=== PATIENT | male | born 1955 | race Caucasian/White ===

== ENCOUNTER 2021-03-20 08:14 | Outpatient (CLI) | payer OTHER | END 2021-03-20 08:15 | disposition home or self-care (01) | LOC: CSHCT 08:14 | PROVIDERS: ATTEND Urology | DX: R10.9 Unspecified abdominal pain (principal); K80.80 Other cholelithiasis without obstruction; N28.82 Megaloureter | CPT/HCPCS: 74178; 82565 ==

== ENCOUNTER 2024-01-05 07:14 | Outpatient (CLI) | payer MEDICARE, OTHER ==
[2024-01-05] MEDS ORDERED: Iopamidol 300 61% 100 ML VIAL FS ONE (12:30)
== END 2024-01-05 07:15 | disposition home or self-care (01) ==
LOC: CSHCT 07:14
PROVIDERS: ATTEND Family Medicine
DX: R10.30 Lower abdominal pain, unspecified (principal); R17 Unspecified jaundice; K80.20 Calculus of gallbladder without cholecystitis without obstruction; K57.30 Diverticulosis of large intestine without perforation or abscess without bleeding
CPT/HCPCS: 74178; Q9967